=== PATIENT | male | born 1940 | race Caucasian/White ===

== ENCOUNTER 2019-08-30 05:51 | Observation (INO) | payer OTHER ==
[2019-08-24 14:38] LABS: BASOPHILS % (AUTO) 0.5 % (0.0-5.0); EOSINOPHILS % (AUTO) 2.3 % (0.0-8.0); HEMATOCRIT 43.4 % (42-54); LYMPHOCYTES % (AUTO) 26.6 % (21.0-51.0); MEAN CORPUSCULAR HEMOGLOBIN 31.1 pg (27.0-33.0); MEAN CORPUSCULAR HGB CONC 33.9 g/dL (32.0-36.0); MEAN CORPUSCULAR VOLUME 91.8 fL (79-99); MONOCYTES % (AUTO) 10.1 % (3.0-13.0); NEUTROPHILS % (AUTO) 60.3 % (40.0-77.0); PLATELET COUNT (AUTO) 226 K/uL (130-400); RED BLOOD CELL COUNT(AUTO) 4.73 MIL/uL (4.50-6.20); RED CELL DISTRIBUTION WIDTH 13.1 % (11.0-15.5); WHITE BLOOD COUNT (AUTO) 5.6 K/uL (4.8-10.8)
[2019-08-24 14:52] LABS: CREATININE 0.9 mg/dL (0.5-1.5); POTASSIUM 4.8 mmol/L (3.5-5.1)
[~2019-08-30] VITALS: Ht 182.9 cm; Wt 106.0 kg
[2019-08-30] VITALS (23 sets, daily range): BP systolic 124–155; BP diastolic 67–88
[~2019-08-30 05:51] MED LIST: ASPI-556 PO; LISI-613 PO; OMEP20CA12 PO
[2019-08-30] MEDS ORDERED: LACTATED RINGERS 1000ML 1,000 ML IV ONE (06:32)
[2019-08-30] MEDS: CEFAZOLIN SODIUM 1 GM VIAL ONE ×2 (06:38→08:25)
[2019-08-30] MEDS ORDERED: DURAMORPH PF1 MG/ML 10ML AMP IV ONE (06:52)
[2019-08-30] MEDS ORDERED: THROMBIN-JMI 20000 UNIT KIT TP ONE (06:52)
[2019-08-30] MEDS ORDERED: CEFAZOLIN SODIUM 1 GM VIAL ONE (06:52)
[2019-08-30] MEDS ORDERED: BUPIVACAINE/EPI/PF 0.25% 30ML VIAL IJ ONE (06:52)
[2019-08-30] MEDS ORDERED: NEOSTIGMINE 5MG/5ML SYR IV ONE (10:55)
[2019-08-30] MEDS ORDERED: LACTATED RINGERS 1000ML 1,000 ML IV SCH (11:20)
[2019-08-30] MEDS ORDERED: SODIUM CHLORIDE 0.9% 10 ML VIAL IVP PRN (11:30)
[2019-08-30] MEDS ORDERED: PROMETHAZINE HCL 25 MG/ML 1ML AMPULE IM PRN (11:30)
[2019-08-30] MEDS ORDERED: MORPHINE SULFATE 2 MG/ML 1ML SYG IVP PRN (11:30)
[2019-08-30] MEDS ORDERED: HYDROCODONE/ACETAMINOPHEN 5/325 MG TAB PO PRN (11:30)
--- NOTE | 2019-08-30 12:00 | NUR ---
PROCEDURE PATIENT ARRIVED TO ROOM AT 1230. REPORT RECEIVED FROM KODAK RN (PACU). PATIENT S/P LUMBAR DECOMPRESSION TO L4 -L5 BY DR. DOUGHERTY. MATHEW DRAIN AND BUTT CATHETER IN PLACE. DRESSING DRY AND INTACT. PATIENT DENIES ANY DISCOMFORT AT THIS TIME. WILL CONTINUE TO MONITOR PATIENT.
[2019-08-30] MEDS: DEXAMETHASONE SOD PHOSPHATE 4 MG/ML 1ML VIAL IVP SCH ×3 (13:19→23:36)
[2019-08-30] MEDS: CEFAZOLIN SODIUM 1 GM VIAL IVP SCH ×3 (17:54→20:26)
[2019-08-31] VITALS: BP 134/76
[2019-08-31 04:00] VITALS: BP_SYST 118; BP_SYST 133; BP_DIAS 52; BP_DIAS 59
[2019-08-31] MEDS: DEXAMETHASONE SOD PHOSPHATE 4 MG/ML 1ML VIAL IVP SCH (05:23)
[2019-08-31 08:10] VITALS: BP 114/66
[2019-08-31] MEDS ORDERED: LISINOPRIL 20 MG TABLET PO SCH (09:00)
[2019-08-31] MEDS ORDERED: ASPIRIN 81 MG EC TAB PO SCH (09:00)
[2019-08-31] MEDS ORDERED: PANTOPRAZOLE SODIUM 40 MG TABLET.DR PO SCH (09:00)
--- NOTE | 2019-08-31 11:00 | NUR ---
PT HERE FOR SCHEDULED PROCEDURE, DC TODAY , NO TRIGGERS OR CONCERNS VOICED, DETAILED CM ASSESSMENT DEFERRED Addendum: 08/31/19 at 1643 by ALTA JAIN RN CM Amended: Links added.
--- NOTE | 2019-08-31 13:30 | NUR ---
DISCHARGE PATIENT/SPOUSE GIVEN DISCHARGE INSTRUCTIONS VIA TEACH BACK. 20G PIV TO LEFT HAND DISCONTINUED, TIP INTACT. MATHEW DRAIN REMOVED WITH TIP INTACT, NEW DRESSING APPLIED, ESTEFANÍA TO INCISION INTACT. STAPLE KIT GIVEN TO PATIENT TO BE TAKE ON OFFICE VISIT. A COPY OF INSTRUCTIONS FOR INCISION CARE, ACTIVITY, AND SIGN AND SYMPTOMS OF INFECTION TO REPORT TO MD. UNABLE TO MAKE FOLLOW UP APPOINTMENT DUE TO OFFICE CLOSED. WILL CALL PATIENT BACK WITH FOLLOW UP APPOINTMENT TODAY. PATIENT STABLE AT THIS TIME, SPOUSE PRESENT TO TRANSPORT PATIENT HOME. PATIENT DENIES ANY PAIN AT THIS TIME.
--- NOTE | 2019-08-31 14:40 | NUR ---
APPOINTMENT CALLED PATIENT FOR APPOINTMENT DATE AND TIME. PATIENT TO FOLLOW UP WITH DR. DOUGHERTY ON 09/08/19 AT 1000. PATIENT VOICED UNDERSTANDING.
== END 2019-08-31 13:24 | disposition home or self-care (01) ==
LOC: DAHIP 05:51 → EDSTATUS 07:30 → 3CH 12:47
PROVIDERS: ADMIT Neurological Surgery; ATTEND Neurological Surgery
DX: M48.061 Spinal stenosis, lumbar region without neurogenic claudication (principal); M47.9 Spondylosis, unspecified; M79.605 Pain in left leg; M79.604 Pain in right leg
CPT/HCPCS: 36415; 63047; 71045; 72020; 80048; 85025; 96374; 96375; 96376 ×2; A4215; A4221; A4222; A4223; A4344; A4510; A4600; A4649 ×4; A4663; A6260; G0378 ×21; J0690 ×3; J1100 ×3; J2274; J2710; J3490; J7120 ×3; U0003